=== PATIENT | female | born 1955 | race Caucasian/White ===

== ENCOUNTER 2022-08-14 09:32 | Outpatient (CLI) | payer MEDICARE, SELFPAY | END 2022-08-14 09:33 | disposition home or self-care (01) | LOC: NFLDREF 08-22 15:30 | PROVIDERS: PCP Internal Medicine; Visit Provider Nurse Practitioner Family | DX: R30.0 Dysuria (principal); R39.9 Unspecified symptoms and signs involving the genitourinary system | CPT/HCPCS: 87086 ==

== ENCOUNTER 2022-11-17 10:15 | Outpatient (RCR) | payer MEDICARE, SELFPAY | END 2022-11-17 11:49 | disposition home or self-care (01) | PROVIDERS: PCP Internal Medicine; Visit Provider Orthopaedic Surgery Sports Medicine | DX: M25.532 Pain in left wrist (principal); Z51.89 Encounter for other specified aftercare | CPT/HCPCS: 97110; 97140; 97165; X5282 ==